=== PATIENT | female | born 1940 | race Hispanic/Latino ===

== ENCOUNTER 2017-09-06 17:24 | Emergency (ER) | payer OTHER ==
[~2017-09-06 17:24] MED LIST: AMIODARONE HCL200 MG PEG; ATORVASTATIN CA10 MG PO; CHERATUSSIN AC118 ML PO; CRESTOR10 MG PO; FUROSEMIDE40 MG PO; GLIMEPIRIDE2 MG PO; HYDROCHLOROTHIA25 MG PO; JANUVIA50 MG PO; LEVAQUIN500 MG PO; LOSARTAN POTAS100 MG PO; METOPROLOL SUCC50 MG PO; NORVASC5 MG PO; OMEPRAZOLE20 MG PO; PEPCID20 MG PO; POTASSIUM CHLO20 ME1 PO; PREDNISONE5 MG PO; PRIMIDONE50 MG PO; QUESTRAN PACKET4 GM PO; SERTRALINE HCL100 MG PO; TAMIFLU75 MG PO; XARELTO20 MG PO; [UNRECOGNIZED DRUG - REMARK]
--- OUTSIDE RECORDS SUMMARY | 2017-09-06 17:27 | XMS REPORT | Clinical Summary ---
Author Author [facility] Organization [facility] Address Unknown Phone Unavailable Care Team Providers Care Manager Visual Name Role Phone Yobani Lee MD PCP Allergies Active Allergy Reactions Severity Noted Date Comments Pantoprazole Rash Low 03/07/2016 Current Medications Prescription Sig. Disp. Refills Start End Date Status Date amLODIPine (NORVASC) 10 TK 1 T PO QD 12 06/30/20 Active mg tablet 17 atorvastatin (LIPITOR) 10 TK 1 T PO QHS 0 04/21/20 Active MG tablet 17 ergocalciferol (VITAMIN TAKE 1 CAPSULE BY MOUTH 0 05/31/20 Active D2) 50,000 unit capsule WEEKLY 17 furosemide (LASIX) 40 mg TK 1 T PO QAM 2 06/30/20 Active tablet 17 glimepiride (AMARYL) 4 MG TK 1 T PO QAM 1 07/03/20 Active tablet 17 metoprolol succinate XL TK 1 T PO BID 0 05/06/20 Active (TOPROL-XL) 50 mg 24 hr 17 tablet omeprazole (PriLOSEC) 20 TK ONE C PO QAM 0 05/07/20 Active MG capsule 17 sertraline (ZOLOFT) 100 TK 1 T PO QD 0 06/30/20 Active MG tablet 17 JANUVIA 50 mg tablet TK 1 T PO QD 0 04/21/20 Active 17 Active Problems Problem Noted Date Bilateral hearing loss 07/08/2017 Encounters Date Type Specialty Care Team Description 07/08/2017 Office Visit Otolaryngology Price Macedo MD Bilateral hearing loss, unspecified hearing loss type (Primary Dx);Sensorineural hearing loss, bilateral after 09/05/2016 Family History Medical History Relation Name Comments Heart attack Mother Heart disease Mother Breast cancer Sister Relation Name Status Comments Mother Sister Social History Tobacco Use Types Packs/Day Years Used Date Never Smoker Smokeless Tobacco: Never Used Alcohol Use Drinks/Week oz/Week Comments No Sex Assigned at Date Recorded Not on file Last Filed Vital Signs Vital Sign Reading Time Taken Blood Pressure 182/54 07/08/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 Pulse 55 07/08/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 Temperature - - Respiratory Rate - - Oxygen Saturation - - Inhaled Oxygen - - Concentration Weight 85.3 kg (188 lb) 07/08/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 Height 157.5 cm (5' 2") 07/08/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 Body Mass Index 34.39 07/08/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 Plan of Treatment Date Type Specialty Care Team Description 09/10/2017 Office Visit Gynecologic Oncology Constance Jensen MD [address] [address] Health Maintenance Due Date Last Done Comments ZOSTER VACCINE 1998 PNEUMOCOCCAL 2003 POLYSACCHARIDE VACCINE AGE 65 AND OVER PNEUMOCOCCAL-13 2003 INFLUENZA VACCINE 03/05/2017 Procedures Procedure Name Priority Date/Time Associated Diagnosis Comments COMPREHENSIVE HEARING Routine 07/08/2017 Bilateral hearing loss, TEST 3:51 PM POWER PLANT ENGINEER unspecified hearing loss type after 09/05/2016 Results * Comprehensive hearing test (07/08/2017 3:51 PM) after 09/05/2016 Insurance Payer Benefit Subscriber ID Type Phone Address Plan / Group TEXANPL[employer] TEXJACQUELYNPLUS [id number] [facility] Home: [id number]
--- OUTSIDE RECORDS SUMMARY | 2017-09-06 17:27 | XMS REPORT ---
[facility] Address Unknown Phone Unavailable Care Team Providers Care Pick Pack Worker Name Role Phone LAURIE TANNER Unavailable Unavailable Problems This patient has no known problems. Allergies, Adverse Reactions, Alerts This patient has no known allergies or adverse reactions. Medications This patient has no known medications. Results Test Description Test Time Test Comments Text Results Atomic Results Result Comments CHEST SINGLE (PORTABLE) [place] [address] Patient Name: ENOC PEREYRA MR #: [id number] : 1940 Age/Sex: 77/F Req #: [id number] Adm Physician: LAURIE TANNER MD Ordered by: JOSE ELIZABETH MD Report #: [id number] Location: MED/SURG2 Room/Bed: [facility] Procedure: [id number] DX/CHEST SINGLE (PORTABLE) Exam Date: 04/10/17 Exam Time: 1245 REPORT STATUS: Signed PROCEDURE: A single AP view of the chest. COMPARISON: [facility], CT, CT CHEST WO, 04/09/2017, 16:22. INDICATIONS: PNEUMONIA FINDINGS: Lines/tubes: None. Lungs: Lungs are well-inflated. Persistent bilateral diffuse alveolar opacities, right greater than left. Pleura: There is no pleural effusion or pneumothorax. Heart and mediastinum: Enlarged cardiac silhouette. Central pulmonary venous congestion. Bones: No acute bony abnormality. IMPRESSION: 1. enlarged cardiac silhouette with central pulmonary venous congestion and persistent bilateral diffuse alveolar opacities, likely representing alveolar pulmonary edema. Bilateral, diffuse pneumonia is a consideration, in the appropriate clinical setting. Yoan Bauer M.D. Dictated by: Yoan Bauer M.D. on 04/10/2017 at 13:24 Electronically approved by: Yoan Bauer M.D. on 04/10/2017 at 13:24 Dictated By: YOAN BAUER MD 1324 Transcribed By: JACQUES on 04/10/17 1324 COPY TO: JOSE ELIZABETH MD CT CHEST WO [place] [address] Patient Name: ENOC PEREYRA MR #: [id number] : 1940 Age/Sex: 77/F Req #: [id number] [facility] Physician: LAURIE TANNER MD Ordered by: JOSE ELIZABETH MD Report #: [id number] Location: MED/SURG Room/Bed: [facility] Procedure: [id number] CT/CT CHEST WO Exam Date: 04/09 Exam Time: 1620 REPORT STATUS: Signed PROCEDURE: CT CHEST WITHOUT CONTRAST CT scan of the chest WITHOUT intravenous contrast, using standard protocol. TECHNIQUE: The chest was scanned utilizing a multidetector helical scanner from the apex to the level of the adrenal glands. No IV contrast was administered because of referring physician request. Coronal and sagittal multiplanar reformations were obtained. COMPARISON: CT chest 12/01/2014. INDICATIONS: SHORTNESS OF BREATH FINDINGS: Lines/tubes: None. Lungs and Airways: Perihilar predominant groundglass and alveolar opacities with interlobular septal thickening. Disproportionate involvement of the right lower lobe. No consolidations or bronchiectasis. Pleura: Small bilateral pleural effusions right greater than left.. Heart and mediastinum: Visualized portions of the thyroid gland appear normal. The heart is enlarged without pericardial effusion. No ectasia or aneurysmal dilatation of the thoracic aorta. Pulmonary outflow tract is of normal caliber. Mild atherosclerotic calcifications of the great vessel origins. No axillary, hilar, or mediastinal lymphadenopathy. Soft tissues: No focal soft tissue abnormalities. Abdomen: The visualized portions of the liver, spleen, pancreas, and adrenals are unremarkable. 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 Bones: No osseous destructive lesions. IMPRESSION: Cardiomegaly with interstitial and alveolar opacities, right greater than left, and associated small pleural effusions. Findings are most consistent with fluid overload/asymmetric pulmonary edema, with multifocal pneumonia a less likely consideration in the appropriate clinical setting. Dictated by: Fred Lozoya M.D. on 04/09/2017 at 16:55 Electronicall y approved by: Fred Lozoya M.D. on 04/09/2017 at 16:55 Dictated By: FRED LOZOYA MD 54 Transcribed By: JAQCUES on 04/09/171654 COPY TO: JOSE ELIZABETH MD CHEST SINGLE (PORTABLE) [place] [address] Patient Name: ENOC PEREYRA MR #: [id number] : 1940 Age/Sex: 77/F Req #: [id number] Adm Physician: Ordered by: DELMY YUSUF MD Report #: [id number] Location: Room/Bed: Procedure: [id number] DX/CHEST SINGLE (PORTABLE) Exam Date: 04/09/17 Exam Time: 0935 REPORT STATUS: Signed PROCEDURE: CHEST SINGLE (PORTABLE) COMPARISON: [facility], DX, CHEST SINGLE , 01/02/2012, 18:49. INDICATIONS: FEVER, CONGESTION, NAUSEA FINDINGS: LUNGS: Right lower lobe airspace consolidation. Mild pulmonary vascular congestion. PLEURA: No effusions or pneumothorax. HEART T MEDIASTINUM: The heart is enlarged.. BONES T SOFT TISSUES: No acute findings. CONCLUSION: Right lower lobe pneumonia with mild pulmonary congestion and cardiomegaly. Bridget Gonzalez D.O. Dictated by: Bridget Gonzalez D.O. on 04/09/2017 at 10:43 Electronically approved by: Bridget Gonzalez D.O. on 04/09/2017 at 10:43 Dictated By: BRIDGET GONZALEZ DO 1043 Transcribed By: JACQUES on 04/09/17 1043 COPY TO: DELMY YUSUF MD
[2017-09-06] MEDS ORDERED: DIPHTH/TETANUS/ACEL. PERTUSSIS 0.5 ML SYR IM ONE (19:00)
[2017-09-06] MEDS ORDERED: ACETAMINOPHEN 325 MG TAB PO ONE (19:15)
== END 2017-09-06 19:35 | disposition home or self-care (01) ==
LOC: FSED 17:24
DX: S01.81XA Laceration without foreign body of other part of head, initial encounter (principal); W01.0XXA Fall on same level from slipping, tripping and stumbling without subsequent striking against object, initial encounter; Y93.01 Activity, walking, marching and hiking; Y92.481 Parking lot as the place of occurrence of the external cause; I10 Essential (primary) hypertension; E11.9 Type 2 diabetes mellitus without complications; E78.5 Hyperlipidemia, unspecified; Z95.1 Presence of aortocoronary bypass graft
CPT/HCPCS: 70450; 70460; 72125; 99284

== ENCOUNTER 2017-10-01 14:13 | Emergency (ER) | payer OTHER ==
[~2017-10-01] VITALS: Ht 157.5 cm; Wt 81.6 kg
--- OUTSIDE RECORDS SUMMARY | 2017-10-01 14:16 | XMS REPORT | Continuity of Care Document ---
Author Author [facility] Organization [facility] Address [address] [place] [address] Phone Unavailable Care Team Providers Care Porcelain Turner Name Role Phone VELIA HOLMAN MD PCP Insurance Providers Guarantor Enoc Clemons Address [address] [place] [address] Email [email or web address] Payer [employer] Policy Number [id number] Subscriber's Name ClemonsEnoc Relationship 18 Self / Same As Patient Group Number [id number] Group Name [employer] - Medicare Advantage Divis Effective Date 17 Advance Directives Directive Response Recorded Date/Time Does the patient have an advance directive? Yes 09/06/17 6:26pm If yes, is advance directive on file with [facility]? No 04/09/17 2:42pm If not on file with [facility] will patient provide a copy? Yes 09/06/17 6:26pm Do you have a Directive to Physician? No 09/06/17 6:26pm Do you have a Medical Power of Material Expediter? Yes 09/06/17 6:26pm Do you have an out of hospital Do Not Resuscitate Order? No 09/06/17 6:26pm Do you have any special needs we should be aware of? No 09/06/17 6:26pm Do you have a support person here with you today? Yes 09/06/17 6:26pm Did patient receive Notice of Privacy Practices? Yes 09/06/17 6:26pm Did patient receive patient rights and responsibilities? Yes 09/06/17 6:26pm Problems Medical Problem Onset Date Status Bronchitis 11/28/2014 Acute Chest pain 05/12/2014 Acute Chronic atrial fibrillation 11/28/2014 Acute Fever 11/28/2014 Acute Hypoxia 11/28/2014 Acute Hypoxia Unknown Pneumonia Unknown Urinary tract infection 05/12/2014 Acute Medications Current Home Medications Medication Dose Units Route Directions Days Qty Instructions Start Date Amiodarone Hcl 200 Mg Tablet 200 Mg Peg Tube Daily Amlodipine Besylate (Norvasc) 5 Mg Tab 10 Mg Oral Daily Atorvastatin Calcium 10 Mg Tablet 10 Mg Oral Daily 30 Tab Cholestyramine (With Sugar) (Questran Packet) 4 Gm Packet 4 Gm Oral Every 6 Hours 10 Drcm Unit Packet Furosemide 40 Mg Tablet 40 Mg Oral Daily 30 Tab Glimepiride 2 Mg Tablet 2 Tab Oral Twice A Day Guaifenesin/Codeine Phosphate (Cheratussin Ac Syrup) 118 Ml Liquid 10 Ml Oral Every 6 Hours 60 Levofloxacin (Levaquin) 500 Mg Tablet 500 Mg Oral Daily 3 Tab Metoprolol Succinate 50 Mg Tab.er.24h 50 Mg Oral Daily Omeprazole 20 Mg Capsule.dr 1 Cap Oral Daily Oseltamivir Phosphate (Tamiflu) 75 Mg Cap 75 Mg Oral Twice A Day 10 Cap Potassium Chloride 20 Meq Tab.er.prt Meq Oral Daily 90 Primidone 50 Mg Tablet 50 Mg Oral Twice A Day Sertraline Hcl 100 Mg Tablet 100 Mg Oral Daily Sitagliptin Phosphate (Januvia) 50 Mg Tablet 1 Tab Oral Daily Past Home Medications Medication Directions Ordered Status Cant Remember , Discontinued Famotidine (Pepcid) 20 Mg Tablet, 20 Mg Oral Twice Daily Before Meals Discontinued Furosemide 40 Mg Tablet, 20 Mg Oral Daily Discontinued Hydrochlorothiazide 25 Mg Tablet, 12.5 Mg Oral Daily Discontinued Losartan Potassium 100 Mg Tablet, 1 Tab Oral Daily Discontinued Prednisone 5 Mg Tablet, 1 Tab Oral Daily Discontinued Rivaroxaban (Xarelto) 20 Mg Tablet, 1 Tab Oral Daily Discontinued Rosuvastatin Calcium (Crestor) 10 Mg Tab, 1 Tab Oral Daily Discontinued Social History Social History Problem Response Recorded Date/Time Onset Date Status Hx Psychiatric Problems No 04/09/2017 2:42pm Not Applicable Not Applicable Hx Eating Disorder No 04/09/2017 2:42pm Not Applicable Not Applicable Hx Substance Use Disorder No 04/09/2017 2:42pm Not Applicable Not Applicable Hx Depression Yes 04/09/2017 2:42pm Not Applicable Not Applicable Hx Alcohol Use No 04/09/2017 2:42pm Not Applicable Not Applicable Hx Substance Use Treatment No 04/09/2017 2:42pm Not Applicable Not Applicable Hx Physical Abuse No 04/09/2017 2:42pm Not Applicable Not Applicable Smoking Status Start Date Stop Date Never Smoker Hospital Discharge Instructions No hospital discharge instruction information available. Plan of Care Discharge Date 09/06/17 7:35pm Disposition HOME, SELF-CARE Condition at Discharge Improved Instructions/Education Provided Hypertension Laceration Fall Prevention Prescriptions See Medication Section Referrals VELIA HOLMAN MD Address: [address] [place] [address] Additional Instructions/Education Return to the closest emergency room if symptoms worsen. You may also take a maximum of 500mg Tylenol every 4 hours as needed for pain and fever. It is okay to alternate the Ibuprofen and Tylenol. Keep dressing in place for 2 days. Sponge bathe for next 2 days, then okay to shower after that. Steristrips will fall off by themselves. Do not soak in bodies of water (bathtub, river, pool, ocean etc) for 4 weeks. Follow up with your doctor in 1 week for wound recheck. Follow up with your doctor sooner if you develop signs of infection (redness, tenderness, swelling, drainage of pus). Functional Status No functional status information available. Allergies, Adverse Reactions, Alerts Allergen Type Severity Reaction Status Last Updated Pantoprazole Allergy Mild SKIN RASH Active 08/04/12 Immunizations No immunization information available. Vital Signs Acute Vital Signs Vital Response Date/Time Temperature (Fahrenheit) 96.7 degrees F (97.6 - 99.5) 04/12/2017 4:00pm Pulse Pulse Rate (adult) 76 bpm (60 - 90) 04/12/2017 4:00pm Respiratory Rate 20 bpm (12 - 24) 04/12/2017 4:00pm Blood Pressure 137/59 mm Hg 04/12/2017 4:00pm Results Laboratory Results Test Name Result Units Flags Reference Collection Date/Time Result Date/ Time Comments White Blood Count 7.36 x10e3/uL 4.8-10.8 04/11/2017 6:04/11/2017 6 :40am Red Blood Count 2.92 x10e6/uL L 3.6-5.1 04/11/2017 6:04/11/2017 6: 40am Hemoglobin 8.6 g/dL L 12.0-16.0 04/11/2017 6:04/11/2017 6:40am Hematocrit 26.3 % L 34.2-44.1 04/11/2017 6:04/11/2017 6:40am Mean Corpuscular Volume 90.1 fL 81-99 04/11/2017 6:04/11/2017 6: 40am Mean Corpuscular Hemoglobin 29.5 pg 28-32 04/11/2017 6:04/11/2017 6:40am Mean Corpuscular Hemoglobin Concent 32.7 g/dL 31-35 04/11/2017 6:04/11/2017 6:40am Red Cell Distribution Width 14.9 % H 11.7-14.4 04/11/2017 6:2016 6:40am Platelet Count 123 x10e3/uL L 140-360 04/11/2017 6:04/11/2017 6: 40am Neutrophils (%) (Auto) 76.2 % 38.7-80.0 04/11/2017 6:04/11/2017 6: 40am Lymphocytes (%) (Auto) 10.6 % L 18.0-39.1 04/11/2017 6:04/11/2017 6 :40am Monocytes (%) (Auto) 9.1 % 4.4-11.3 04/11/2017 6:04/11/2017 6: 40am Eosinophils (%) (Auto) 3.3 % 0.0-6.0 04/11/2017 6:04/11/2017 6: 40am Basophils (%) (Auto) 0.3 % 0.0-1.0 04/11/2017 6:04/11/2017 6:40am IM GRANULOCYTES % 0.5 % 0.0-1.0 04/11/2017 6:04/11/2017 6:40am Neutrophils # (Auto) 5.6 2.1-6.9 04/11/2017 6:20am 04/11/2017 6:40am Lymphocytes # (Auto) 0.8 L 1.0-3.2 04/11/2017 6:20am 04/11/2017 6: 40am Monocytes # (Auto) 0.7 0.2-0.8 04/11/2017 6:20am 04/11/2017 6:40am Eosinophils # (Auto) 0.2 0.0-0.4 04/11/2017 6:20am 04/11/2017 6:40am Basophils # (Auto) 0.0 0.0-0.1 04/11/2017 6:20am 04/11/2017 6:40am Absolute Immature Granulocyte (auto 0.04 x10e3/uL 0-0.1 04/11/2017 6: 20am 04/11/2017 6:40am Prothrombin Time 16.6 seconds H 11.9-14.5 04/09/2017 9:1504/09/2017 9 :48am Prothromb Time International Ratio 1.27 04/09/2017 9:15am 2016 9:48am Oral Anticoagulant Therapy INR Values: 1. Low Intensity Therapy 1.5 - 2.0 2. Moderate Intensity Therapy 2.0 - 3.0 3. High Intensity Therapy(1) 2.5 - 3.5 4. High Intensity Therapy(2) 3.0 - 4.0 5. Panic Value INR > 5.0 Activated Partial Thromboplast Time 37.8 seconds H 23.8-35.5 04/09/2017 9 :15am 04/09/2017 9:48am Urine Color YELLOW YELLOW 04/09/2017 8:34a04/09/2017 9:40am Urine Clarity SL CLOUDY CLEAR 04/09/2017 8:34am 04/09/2017 9:40am Urine Specific [place] 1.020 1.010-1.025 04/09/2017 8:34am 2016 9:40am Urine pH 5 5 - 7 04/09/2017 8:34am 04/09/2017 9:40am Urine Leukocyte Esterase 2+ H NEGATIVE 04/09/2017 8:34am 04/09/2017 9: 40am Urine Nitrite NEGATIVE NEGATIVE 04/09/2017 8:34am 04/09/2017 9:40am Urine Protein 3+ H NEGATIVE 04/09/2017 8:34a 04/09/2017 9:40am Urine Glucose (UA) NEGATIVE NEGATIVE 04/09/2017 8:34a 04/09/2017 9: 40am Urine Ketones NEGATIVE NEGATIVE 04/09/2017 8:34a 04/09/2017 9:40am Urine Urobilinogen 1 mg/dL 0.2 - 1 04/09/2017 8:34a 04/09/2017 9:40am Urine Bilirubin 1+ H NEGATIVE 04/09/2017 8:34a 04/09/2017 9:40am Urine Blood 1+ H NEGATIVE 04/09/2017 8:34a 04/09/2017 9:40am Urine WBC 11-20 /HPF H 0-5 04/09/2017 8:34am 04/09/2017 10:20am Urine RBC 0-5 /HPF 0-5 04/09/2017 8:34am 04/09/2017 10:20am Urine Bacteria RARE /HPF NONE 04/09/2017 8:34am 04/09/2017 10:20am Urine Epithelial Cells FEW /LPF NONE 04/09/2017 8:34am 04/09/2017 10: 20am Urine Transitional Epithelial Cells RARE H NONE 04/09/2017 8:34am 12/2016 10:20am Sodium Level 139 mmol/L 136-145 04/11/2017 6:20am 04/11/2017 7:05am Potassium Level 3.2 mmol/L L 3.5-5.1 04/11/2017 6:20am 04/11/2017 7: 05am Chloride Level 103 mmol/L 98-107 04/11/2017 6:20am 04/11/2017 7:05am Influenza Virus Types A,B Antigen POSITIVE FLU A H NEGATIVE 04/10/2017 12:22pm 04/10/2017 2:05pm Results called to HUBER BULL at 1403 on 01/19 by Heron Haines. RB OK. Results called toDERRICK NAZARIO in infection control at 1403 on 04/10/17 by Heron Haines. Carbon Dioxide Level 29 mmol/L 22-29 04/11/2017 6:20am 04/11/2017 7: 05am Anion Gap 10.2 mmol/L 8-16 04/11/2017 6:20am 04/11/2017 7:05am Blood Urea Nitrogen 29 mg/dL H 7-26 04/11/2017 6:2004/11/2017 7:05am Creatinine 1.32 mg/dL H 0.57-1.11 04/11/2017 6:20am 04/11/2017 7:05am BUN/Creatinine Ratio 22 6-25 04/11/2017 6:2004/11/2017 7:05am Estimat Glomerular Filtration Rate 39 ML/MIN L 60- 04/11/2017 6:2002/2017 7:05am Ranges were taken from the National Kidney Disease Education Program and the National Kidney Foundation literature. Reference ranges: 60 or greater: Normal 16-59 (for 3 consecutive months): Chronic kidney disease 15 or less: Kidney failure Glucose Level 133 mg/dL H 74-118 04/11/2017 6:20am 04/11/2017 7:05am Calcium Level 8.6 mg/dL 8.4-10.2 04/11/2017 6:2004/11/2017 7:05am Bedside Glucose 265 mg/dL H 70-120 04/12/2017 3:55pm 04/12/2017 4:36pm Meter ID: [id number] Hemoglobin A1c Percent 5.9 % 4.0-7.0 04/10/2017 5:54am 04/10/2017 7: 13am Iron Level 12 ug/dL L 50-170 04/10/2017 5:54am 04/10/2017 7:13am Total Iron Binding Capacity 209 ug/dL L 261-478 04/10/2017 5:54am 2016 7:13am Percent Iron Saturation 6 % L 15-50 04/10/2017 5:54am 04/10/2017 7:13am Transferrin 149 mg/dL L 180-382 04/10/2017 5:54am 04/10/2017 7:13am Total Bilirubin 1.7 mg/dL H 0.2-1.2 04/10/2017 5:54am 04/10/2017 7:13am Aspartate Amino Transf (AST/SGOT) 24 IU/L 5-34 04/10/2017 5:54am 2016 7:13am Alanine Aminotransferase (ALT/SGPT) 44 IU/L 0-55 04/10/2017 5:54am 01/2017 7:13am Total Protein 6.3 g/dL L 6.5-8.1 04/10/2017 5:54am 04/10/2017 7:13am Albumin 2.5 g/dL L 3.5-5.0 04/10/2017 5:54am 04/10/2017 7:13am Globulin 3.8 g/dL H 2.3-3.5 04/10/2017 5:54am 04/10/2017 7:13am Albumin/Globulin Ratio 0.7 L 0.8-2.0 04/10/2017 5:54am 04/10/2017 7: 13am Alkaline Phosphatase 97 IU/L 40-150 04/10/2017 5:54am 04/10/2017 7: 13am B-Type Natriuretic Peptide 1274.8 pg/mL H 0-100 04/09/2017 9:15am 2016 10:01am Creatine Kinase 90 IU/L 29-168 04/09/2017 5:18pm 04/09/2017 5:49pm Creatine Kinase MB 2.50 ng/mL 0.00-5.00 04/09/2017 5:18pm 04/09/2017 5: 58pm Troponin I 0.100 ng/mL 0-0.300 04/09/2017 5:18pm 04/09/2017 5:58pm Vitamin B12 Level 312 pg/mL 213-816 04/10/2017 5:54am 04/10/2017 10: 03am Folate 17.4 ng/mL H 7.0-15.4 04/10/2017 5:54am 04/10/2017 10:03am Thyroid Stimulating Hormone (TSH) 1.651 uIU/mL 0.350-4.940 04/10/2017 5: 54am 04/10/2017 9:56am Vancomycin Level Trough 20.0 ug/mL *H 5.0-10.0 04/12/2017 9:25am 2016 10:02am Results called to LYNETTE PINEDA at 1000 on 04/12/17 by Graciela Christopher. RB OK. Stool Occult Blood NEGATIVE NEGATIVE 04/10/2017 9:40am 04/10/2017 11: 02am Clostridium Difficile Toxin A & B NEGATIVE NEGATIVE 04/11/2017 12: 00pm 04/11/2017 3:01pm Testing on stool aspirate specimens is outside director of partnerships claims since specimen type not validated on this assay. Microbiology Results Procedure Source Organism/Result Collection Date/Time Result Date/Time Result Status Urine Culture Urine,Random ESCHERICHIA COLI 04/09/2017 8:32am 04/11/2017 8 :08am Final Blood Culture Blood NO GROWTH AFTER 5 DAYS, FINAL REPORT 04/09/2017 9:15am 04/14/2017 9:26am Final Procedures Procedure Status Date Provider(s) Computed tomography of chest without contrast Active 04/09/17 JOSE ELIZABETH MD Encounters Encounter Location Arrival/Admit Date Discharge/Depart Date Attending Provider [facility] 09/06/17 5:24pm 7:35pm ANTONELLA GREY MD Discharged Inpatient [facility] 04/09/17 10:53am 6:19pm LAURIE TANNER MD
--- OUTSIDE RECORDS SUMMARY | 2017-10-01 14:16 | XMS REPORT | Clinical Summary ---
Author Author [facility] Organization [facility] Address Unknown Phone Unavailable Care Team Providers Care Gin Feeder Name Role Phone Yobani Lee MD PCP [...] hearing loss, unspecified hearing loss type (Primary Dx); Sensorineural hearing loss, bilateral after 09/30/2016 Family History Medical History Relation Name Comments [...] Taken Blood Pressure 182/54 07/08/2017 2:35 PM HORSE RACER Pulse 55 07/08/2017 2:35 PM HORSE RACER Temperature - - Respiratory Rate - - Oxygen Saturation - - Inhaled Oxygen - - Concentration Weight 85.3 kg (188 lb) 07/08/2017 2:35 PM HORSE RACER Height 157.5 cm (5' 2") 07/08/2017 2:35 PM HORSE RACER Body Mass Index 34.39 07/08/2017 2:35 PM HORSE RACER Plan of Treatment Date Type Specialty Care Team Description 10/08/2017 Office Visit Gynecologic Oncology Constance Jensen MD [address] [address] Health Maintenance Due Date Last Done Comments ZOSTER VACCINE 1998 PNEUMOCOCCAL 2003 POLYSACCHARIDE VACCINE AGE 65 AND OVER PNEUMOCOCCAL-13 2003 INFLUENZA VACCINE 03/05/2017 Procedures Procedure Name Priority Date/Time Associated Diagnosis Comments COMPREHENSIVE HEARING Routine 07/08/2017 Bilateral hearing loss, TEST 3:51 PM HORSE RACER unspecified hearing loss type after 09/30/2016 Results * Comprehensive hearing test (07/08/2017 3:51 PM) after 09/30/2016 Insurance Payer Benefit Subscriber ID Type Phone Address Plan / Group [employer] TEX[employer] xxxxxxxxx [facility]
[2017-10-01] MEDS ORDERED: KEFLEX500 MG PO (15:04)
[2017-10-01 15:38] VITALS: BP 138/64
== END 2017-10-01 15:30 | disposition home or self-care (01) ==
LOC: FSED 14:13
DX: R30.0 Dysuria (principal); N30.90 Cystitis, unspecified without hematuria
CPT/HCPCS: 81003; 87086; 87186; 99282

== ENCOUNTER 2018-04-22 21:57 | Emergency (ER) | payer OTHER ==
[~2018-04-22] VITALS: Ht 157.5 cm; Wt 88.5 kg
[~2018-04-22 21:57] MED LIST changes: +KEFLEX500 MG PO
[2018-04-22] MEDS ORDERED: HYDROCODONE/APAP 5MG-325MG TAB PO ONE (23:15)
--- NOTE | 2018-04-23 03:09 | Diagnostic Imaging Report ---
Exam: AP view of the chest and left RIBS Indication: Left-sided rib pain underneath breast after fall Comparison: None Findings: Cardiomegaly and vascular congestion. Surgical clips right upper quadrant of the abdomen. No pleural effusion or pneumothorax. Acute appearing, displaced and nondisplaced left posterior third, fourth, fifth and possibly sixth and seventh rib fractures. Exam is limited by soft tissue attenuation. Impression: Exam is limited by soft tissue attenuation. Suspected acute fractures of left posterior ribs 3 through 7. Please correlate with site of pain. No pneumothorax or pleural effusion. Signed by: Dr. Alejandra Chowdhury M.D. on 04/23/2018 3:05 AM
--- NOTE | 2018-04-23 03:17 | Diagnostic Imaging Report ---
History:Left-sided occipital pain, status post fall. Comparison studies:CT head 03/25/2012 Technique: Axial images were obtained from the skull base to the vertex. Coronal and sagittal images reconstructed from the axial data. Intravenous contrast: None Dose modulation, iterative reconstruction, and/or weight based adjustment of the mA/kV was utilized to reduce the radiation dose to as low as reasonably achievable. Findings: Scalp/skull: Left parietal scalp hematoma without underlying fracture. Extra-axial spaces: No masses. No fluid collections. Brain sulci: Mildly prominent. Ventricles: Mild compensatory dilatation. No hydrocephalus. Parenchyma: Scattered hypodensities in the supratentorial white matter are small vessel ischemic changes. No masses, hemorrhage, acute or chronic cortical vascular insults. Sellar/suprasellar region: No abnormalities. Craniocervical junction: Patent foramen magnum. No Chiari one malformation. Incidental findings: Atherosclerotic calcifications in the carotid siphons . Impression: No acute intracranial abnormalities. Left parietal scalp hematoma Chronic findings: 1. Mild generalized volume loss. 2. Moderate supratentorial white matter small vessel ischemic changes. Signed by: DR Gabe Mccoy M.D. on 04/23/2018 3:12 AM
[2018-04-23] MEDS ORDERED: KETOROLAC TROMETHAMINE 30 MG/ML VIAL IM STA (03:34)
== END 2018-04-23 04:18 | disposition home or self-care (01) ==
LOC: FSED 21:57
DX: S00.03XA Contusion of scalp, initial encounter (principal); S22.42XA Multiple fractures of ribs, left side, initial encounter for closed fracture; W01.0XXA Fall on same level from slipping, tripping and stumbling without subsequent striking against object, initial encounter; Y92.008 Other place in unspecified non-institutional (private) residence as the place of occurrence of the external cause; I10 Essential (primary) hypertension; E11.9 Type 2 diabetes mellitus without complications; E78.00 Pure hypercholesterolemia, unspecified
CPT/HCPCS: 70450; 71101; 99284

== ENCOUNTER 2019-06-19 13:56 | Emergency (ER) | payer OTHER ==
[~2019-06-19] VITALS: Ht 157.5 cm; Wt 86.8 kg
[2019-06-19] MEDS ORDERED: TETANUS/DIPHTHERIA TOX ADULT 0.5 ML SYR IM STA (14:12)
[2019-06-19] MEDS ORDERED: ACETAMINOPHEN 325 MG TAB PO ONE (14:15)
[2019-06-19] MEDS ORDERED: ACETAMINOPHEN 325 MG TAB ONE (14:39)
--- NOTE | 2019-06-19 15:12 | Diagnostic Imaging Report ---
EXAMINATION: ANKLE 2 VIEW LEFT - HOPD INDICATION: Trauma, ankle pain COMPARISON: None FINDINGS: No acute fracture or dislocation. Alignment is anatomic. No substantial ankle joint effusion. Small plantar calcaneal spur. Achilles enthesopathy. The soft tissues appear unremarkable. IMPRESSION: No acute osseous injury. Bony proliferative changes of the calcaneus. Signed by: Patsy Kerr MD on 06/19/2019 3:09 PM
[2019-06-19 15:42] VITALS: BP 195/86
[2019-06-19] MEDS ORDERED: CLONIDINE HCL 0.1 MG TAB ONE (15:57)
[2019-06-19] MEDS ORDERED: CLONIDINE HCL 0.2 MG TAB PO ONE (17:00)
== END 2019-06-19 16:25 | disposition home or self-care (01) ==
LOC: FSED 13:56
DX: S93.432A Sprain of tibiofibular ligament of left ankle, initial encounter (principal); S00.511A Abrasion of lip, initial encounter; S60.511A Abrasion of right hand, initial encounter; W01.0XXA Fall on same level from slipping, tripping and stumbling without subsequent striking against object, initial encounter; Y92.488 Other paved roadways as the place of occurrence of the external cause; E11.9 Type 2 diabetes mellitus without complications; I10 Essential (primary) hypertension; E78.00 Pure hypercholesterolemia, unspecified
CPT/HCPCS: 90714; 99283